=== PATIENT | female | born 1970 | race Caucasian/White ===

== ENCOUNTER 2017-03-13 13:50 | Emergency (ER) | payer MEDICARE, MEDICAID ==
[~2017-03-13] VITALS: Ht 157.5 cm; Wt 43.2 kg
[~2017-03-13 13:50] MED LIST: BACL-19 PO; HYDR-3240 PO; LISI-167 PO; LORA-446 PO
[2017-03-13] MEDS ORDERED: SODIUM CHLORIDE FLUSH 10ML SYR IVF ONE (14:00)
[2017-03-13] MEDS ORDERED: SODIUM CHLORIDE 0.9% 1,000 ML IV ONE (14:00)
[2017-03-13 14:32] LABS: BLOOD UREA NITROGEN 11 mg/dL (7-18)
[2017-03-13 14:37] LABS: ASPARTATE AMINO TRANSFERASE 20 U/L (15-37)
[2017-03-13] MEDS ORDERED: LORazepam 1MG TABLET PO ONE (15:00)
[2017-03-13] MEDS ORDERED: ALBUTEROL/IPRATROPIUM 2.5MG/0.5MG, 3 ML NPPB ONE (15:00)
[2017-03-13] MEDS ORDERED: LORazepam 1MG TABLET ONE (15:05)
[2017-03-13] MEDS ORDERED: ALBUTEROL/IPRATROPIUM 2.5MG/0.5MG, 3 ML ONE (15:15)
[2017-03-13 19:45] VITALS: BP 135/75
== END 2017-03-13 19:47 | disposition home or self-care (01) ==
LOC: ED 18:28
DX: M62.81 Muscle weakness (generalized) (principal); Z76.0 Encounter for issue of repeat prescription; F31.9 Bipolar disorder, unspecified; F17.200 Nicotine dependence, unspecified, uncomplicated; Z86.73 Personal history of transient ischemic attack (TIA), and cerebral infarction without residual deficits; Z88.0 Allergy status to penicillin
CPT/HCPCS: 36415; 70450; 80053; 81001; 85025; 87077; 87086; 87147; 87186; 93005; 94640; 99285; J7620

== ENCOUNTER 2017-10-21 16:56 | Emergency (ER) | payer MEDICAID, MEDICARE ==
[~2017-10-21] VITALS: Ht 160 cm; Wt 40.9 kg
[2017-10-21 18:29] VITALS: BP 149/92
== END 2017-10-21 19:02 | disposition home or self-care (01) ==
LOC: ED 18:55
DX: S42.202A Unspecified fracture of upper end of left humerus, initial encounter for closed fracture (principal); M25.552 Pain in left hip; I10 Essential (primary) hypertension; Z86.73 Personal history of transient ischemic attack (TIA), and cerebral infarction without residual deficits; F17.200 Nicotine dependence, unspecified, uncomplicated; W01.0XXA Fall on same level from slipping, tripping and stumbling without subsequent striking against object, initial encounter; Y93.89 Activity, other specified; Y92.009 Unspecified place in unspecified non-institutional (private) residence as the place of occurrence of the external cause; Y99.9 Unspecified external cause status
CPT/HCPCS: 29105; 99284

== ENCOUNTER 2020-08-20 10:07 | Emergency (ER) | payer MEDICARE, MEDICAID ==
[~2020-08-20] VITALS: Ht 157.5 cm; Wt 41.8 kg
[2020-08-20 10:22] VITALS: BP 186/110
--- NOTE | 2020-08-20 11:42 | NUR ---
bill hiker: pt to room 11 from [facility]
--- NOTE | 2020-08-20 11:56 | NUR ---
PT HERE WITH C/O BUG BITES ON BACK AND ARMS. PER PT'S SON THINKS IT'S FROM BED BUGS.
[2020-08-20] MEDS ORDERED: KETOROLAC 30 MG/1 ML ONE (12:29)
[2020-08-20] MEDS ORDERED: KETOROLAC 30 MG/1 ML IM ONE (12:30)
--- NOTE | 2020-08-20 13:24 | NUR ---
PT WAITING FOR HER SON TO PICK HER UP FOR SAFE RIDE HOME.
== END 2020-08-20 13:35 | disposition home or self-care (01) ==
LOC: ED 12:39
DX: S76.012A Strain of muscle, fascia and tendon of left hip, initial encounter (principal); S70.262A Insect bite (nonvenomous), left hip, initial encounter; I10 Essential (primary) hypertension; Z86.73 Personal history of transient ischemic attack (TIA), and cerebral infarction without residual deficits; B86 Scabies; W57.XXXA Bitten or stung by nonvenomous insect and other nonvenomous arthropods, initial encounter; Y93.89 Activity, other specified; Y92.89 Other specified places as the place of occurrence of the external cause; Y99.8 Other external cause status
CPT/HCPCS: 73502; 96372; 99283; J1885; Q0177

== ENCOUNTER 2021-03-21 20:18 | Emergency (ER) | payer MEDICARE, MEDICAID ==
[~2021-03-21] VITALS: Ht 162.6 cm; Wt 65.0 kg
[~2021-03-21 20:18] MED LIST changes: +HYDR-2214 PO; -HYDR-3240 PO
[2021-03-21 20:21] VITALS: BP 187/112
--- NOTE | 2021-03-21 20:50 | NUR ---
Pt brought in by EMS c/o left ankle/foot pain and swelling as well as a generalized headache. Per EMS, s/s/ have been ongoing x1 week. 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 Pt has residual left sided deficits. Noticeable swelling to foot, no redness, no streaking, no warmth. Pulses 2+ Pt alert and oriented x4, GCS 15, denies drugs or alcohol or covid sx. Pt actively crying and upset during initial assessment. Pt states she has a yeast infection. Will not specify if she was recently dx with this or not or has self dx herself based on her symptoms.
[2021-03-21 21:43] LABS: BASOPHILS % (AUTO) 1 % (0-1); EOSINOPHILS % (AUTO) 3 % (1-7); LYMPHOCYTES % (AUTO) 22 % (22-44); MEAN CORPUSCULAR HEMOGLOBIN 30.2 pg (27.0-34.8); MEAN CORPUSCULAR HGB CONC 34.3 g/dL (32.4-35.8); MEAN PLATELET VOLUME 8.1 fL (7.4-10.4); MONOCYTES % (AUTO) 8 % (2-9); NEUTROPHILS % (AUTO) 67 % (42-75); PLATELET COUNT 350 x10^3/uL (130-400); RED BLOOD COUNT 4.29 x10^6/uL (3.82-5.3); RED CELL DISTRIBUTION WIDTH 14.3 % (9.6-15.2)
[2021-03-21 21:51] LABS: ALBUMIN 3.2 g/dL (3.4-5.0); ANION GAP 3 mmol/L (5-15); CALCIUM 8.9 mg/dL (8.5-10.1); CHLORIDE 104 mmol/L (98-107)
--- NOTE | 2021-03-21 22:44 | NUR ---
Pt was discharged in stable condition. I personally called a cab for pt to take [facility] [place]. She was thankful for this. Pt was provided with discharge paperwork, and snacks (crackers, juice.) in a bag. Pt was discharged from ER wheelchair to her personal rolling walker. Pt was wheeled outside to await cab. Pt denied further needs. Discharged with all personal belongings, in hospital non slip socks.
== END 2021-03-21 22:48 | disposition home or self-care (01) ==
LOC: ED 20:30
DX: M79.672 Pain in left foot (principal); F15.129 Other stimulant abuse with intoxication, unspecified; Z72.9 Problem related to lifestyle, unspecified; I10 Essential (primary) hypertension; F17.200 Nicotine dependence, unspecified, uncomplicated; Z86.73 Personal history of transient ischemic attack (TIA), and cerebral infarction without residual deficits
CPT/HCPCS: 36415; 80048; 82040; 85025; 99283

== ENCOUNTER 2021-03-27 08:18 | Emergency (ER) | payer MEDICARE, MEDICAID ==
[~2021-03-27] VITALS: Ht 160 cm; Wt 43.5 kg
--- NOTE | 2021-03-27 08:59 | NUR ---
B[employer] WORKER: PT TO ROOM FROM LOBBY
--- NOTE | 2021-03-27 09:21 | NUR ---
PT AMBULATORY TO ROOM 28 W/ C/O R EAR PAIN, FIRMNESS AND DEFORMITY NOTED TO R EAR. PT STATES SHE HAS NOTICED THIS HAPPENING OVER THE LAST YEAR AND HAS BEEN SEEN TWICE AT [facility] FOR IT. DENIES FOLLOWING UP W/ ENT SPECIALIST. PT RESTING ON GURNICOLASA. NADN. WARM BLANKET PROVIDED.
[2021-03-27] MEDS ORDERED: ACETAMINOPHEN 325 MG TABLET PO ONE (09:30)
[2021-03-27] MEDS ORDERED: ACETAMINOPHEN 325 MG TABLET ONE (09:33)
[2021-03-27] MEDS ORDERED: LISINOPRIL 20 MG TABLET ONE (09:52)
[2021-03-27 09:54] VITALS: BP 183/99
[2021-03-27] MEDS ORDERED: LISINOPRIL 20 MG TABLET PO ONE (10:00)
[2021-03-27] MEDS ORDERED: LISINOPRIL 20 MG TABLET PO SCH (10:00)
== END 2021-03-27 10:07 | disposition home or self-care (01) ==
LOC: ED 09:44
DX: H92.01 Otalgia, right ear (principal); I10 Essential (primary) hypertension
CPT/HCPCS: 99283

== ENCOUNTER 2021-03-30 18:15 | Emergency (ER) | payer MEDICARE, MEDICAID ==
[~2021-03-30] VITALS: Ht 160 cm; Wt 45.0 kg
[2021-03-30 18:16] VITALS: BP 165/92
--- NOTE | 2021-03-30 18:28 | NUR ---
PT TO ROOM FROM WALL, MONITORS CONNECTED. PT GENE [place]RIAGA FROM [facility] FOR BILATERAL FOOT PAIN "GLASS IN MY FEET FOR YEARS" AO TO PT'S USUAL BASELINE.
--- NOTE | 2021-03-30 18:34 | NUR ---
ERP AT BS FOR EVAL
--- NOTE | 2021-03-30 18:52 | NUR ---
RECEIVED REPORT FROM LISANDRA SIBLEY
--- NOTE | 2021-03-30 19:09 | NUR ---
Patient given discharge instructions and they have confirmed that they understand the instructions. Patient ambulatory with steady gait.
== END 2021-03-30 19:11 | disposition home or self-care (01) ==
LOC: ED 18:45
DX: F15.150 Other stimulant abuse with stimulant-induced psychotic disorder with delusions (principal); F15.129 Other stimulant abuse with intoxication, unspecified; Z72.9 Problem related to lifestyle, unspecified; M79.671 Pain in right foot; M79.672 Pain in left foot; I10 Essential (primary) hypertension; F17.200 Nicotine dependence, unspecified, uncomplicated
CPT/HCPCS: 99283

== ENCOUNTER 2021-04-09 16:04 | Emergency (ER) | payer MEDICARE, MEDICAID ==
[~2021-04-09] VITALS: Ht 160 cm; Wt 43.5 kg
--- NOTE | 2021-04-09 16:16 | NUR ---
NAX1 @ [id number]
[2021-04-09 18:16] LABS: BASOPHILS % (AUTO) 1 % (0-1); EOSINOPHILS % (AUTO) 2 % (1-7); LYMPHOCYTES % (AUTO) 31 % (22-44); MEAN CORPUSCULAR HEMOGLOBIN 30.4 pg (27.0-34.8); MEAN CORPUSCULAR HGB CONC 34.2 g/dL (32.4-35.8); MEAN PLATELET VOLUME 8.1 fL (7.4-10.4); MONOCYTES % (AUTO) 9 % (2-9); NEUTROPHILS % (AUTO) 58 % (42-75); PLATELET COUNT 301 x10^3/uL (130-400); RED BLOOD COUNT 4.27 x10^6/uL (3.82-5.3); RED CELL DISTRIBUTION WIDTH 14.5 % (9.6-15.2)
[2021-04-09 18:25] LABS: ALANINE AMINOTRANSFERASE 44 U/L (12-78); ALBUMIN 3.2 g/dL (3.4-5.0); ANION GAP 6 mmol/L (5-15); CHLORIDE 105 mmol/L (98-107)
[2021-04-09 18:30] LABS: ALKALINE PHOSPHATASE 59 U/L (45-117); BILIRUBIN,TOTAL 0.3 mg/dL (0.2-1.0); CREATININE 0.77 mg/dL (0.55-1.02); TOTAL PROTEIN 6.9 g/dL (6.4-8.2); TROPONIN I 0.018 ng/mL (0.000-0.045)
--- NOTE | 2021-04-09 18:41 | NUR ---
MD Madden made aware of pt BP. Pt reports non compliance with BP meds. Pt ambulatory to bathroom with steady gait and walker. Addendum: 04/09/21 at 1847 by JOON MD Madden made aware of pt BP, verbal order of 0.1mg clonidine po now. Pt reports non compliance with BP meds. Pt ambulatory to bathroom with steady gait and walker.
[2021-04-09 20:36] VITALS: BP 128/61
== END 2021-04-09 21:24 | disposition home or self-care (01) ==
LOC: ED 16:30
DX: S30.0XXA Contusion of lower back and pelvis, initial encounter (principal); R21 Rash and other nonspecific skin eruption; I10 Essential (primary) hypertension; W18.30XA Fall on same level, unspecified, initial encounter; Y93.89 Activity, other specified; Y92.410 Unspecified street and highway as the place of occurrence of the external cause; Y99.8 Other external cause status
CPT/HCPCS: 36415; 72110; 72220; 80053; 84484; 85025; 93005; 99285